=== PATIENT | female | born 1960 | race Caucasian/White ===

== ENCOUNTER 2024-10-26 12:59 | Outpatient (CLI) | payer OTHER, SELFPAY ==
--- NOTE | ~2024-10-26 | CT_ITS ---
CT Scan of the Chest without Contrast: Clinical Indication: Shortness of breath Technique: Contiguous sections were acquired throughout the chest without intravenous contrast. Dose reduction technique was used on this scan by utilizing automated exposure control and iterative recon struction technique. The dose-length product (DLP) was 133.77 mGy-cm. Findings: There is no evidence of any significant mediastinal, hilar or axillary lymphadenopathy. The mediastin al soft tissues appear normal. There is no evidence of pleural or pericardial effusion. There are multiple areas of patchy consolidation and irregular nodularity, predominantly involving th e lower lobes, lingula, right middle lobe, and anterior inferior right upper lobe. There is additiona l scattered tree-in-bud opacities in these regions as well. Moderate emphysema. Images through the upper abdomen reveal no abnormalities. Impression: Patchy areas consolidation, nodularity, and tree-in-bud opacities throughout both lungs, with basilar predominance, as detailed above. Findings compatible with patchy pneumonia and underlying acute on c hronic small airways infectious process. Moderate emphysema. Reviewed, dictated and finalized at location M. TROPHYSIOLOGY NURSE PRACTITIONER Impression: Patchy areas consolidation, nodularity, and tree-in-bud opacities throughout iqra th lungs, with basilar predominance, as detailed above. Findings compatible wit h patchy pneumonia and underlying acute on chronic small airways infectious pro cess. Moderate emphysema.
== END 2024-10-26 13:00 | disposition home or self-care (01) ==
PROVIDERS: PCP Nurse Practitioner; Visit Provider Nurse Practitioner
DX: R91.8 Other nonspecific abnormal finding of lung field (principal); J43.9 Emphysema, unspecified
CPT/HCPCS: 71250